=== PATIENT | female | born 1965 | race Caucasian/White ===

== ENCOUNTER → 2017-09-13 13:02 | Outpatient (CLI) | payer OTHER, SELFPAY ==
--- NOTE | 2017-09-13 13:25 | RAD_ITS ---
STUDY: SWALLOWING STUDY REASON FOR EXAM: Female, 52 years old. Dysphasia. History of laryngeal carcinoma and radiation treatment. TECHNIQUE: The examination was performed with Speech Pathology in attendance. Under fluoroscopic observation, the patient ingested thin barium, thick barium, barium pudding, and barium coated cracker. FLUOROSCOPY TIME: 2:45 minutes/seconds. 2513 fluoroscopic images were obtained. RADIOLOGIST INVOLVEMENT: Radiologist was present and providing direct supervision. COMPARISON: None. FINDINGS: The following was observed during swallowing of the various mixtures of barium: Thin Barium: Penetration without aspiration with ingestion of thin liquids. Thick Barium: There was no evidence of aspiration or laryngeal penetration. Barium Pudding: There was no evidence of aspiration or laryngeal penetration. Barium Coated Cracker: There was no evidence of aspiration or laryngeal penetration. RAD/Swallowing Function w/Video IMPRESSION: Penetration with ingestion of thin liquids. The swallow study findings were discussed with the patient by the speech pathologist at the conclusion of the examination. Please see speech pathology report for more information and recommendations. Electronically Signed: West De Jesus MD at 14:26 EDT Tel [phone], Service support ,
--- NOTE | 2017-09-13 13:30 | SP.MBSS_ITS ---
PRIMARY / SECONDARY DIAGNOSIS: dysphagia (R13.10) REFERRING PHYSICIAN: Dr. Zackary Troncoso MD CURRENT DIET: regular textures, thin liquids DENTITION: WFL MENTAL STATUS: WNL RESPIRATORY STATUS: O2 via room air PREVIOUS MODIFIED BARIUM SWALLOW STUDY: none REASON FOR REFERRAL: Patient is a 52 year old female referred for a modified barium swallow (MBS) study to objectively assess the Patients oropharyngeal swallow function under fluoroscopy secondary to reported difficulties with deglutition stemming from prior excision of malignant vocal fold polyps, with reported occasional odynophagia / burning sensation, globus sensation, and occasional coughing during intake. Dysphagia has somewhat improved over the last few months, with the Patient reporting symptoms ameliorated with chin tuck posture execution. Patient reports recent right lower lobe pneumonia in addition to frequent bouts of bronchitis following initiation of radiation intervention, in addition to multiple bouts of pneumonia and bronchitis leading up to identification. Patient reports upwards of 40bs weight loss over the last 6 months. Aphonic at time of assessment (reports losing voice last evening with prolonged coughing events). 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 STUDY FINDINGS: Patient participated in a Modified Barium Swallow (MBS) study on 09/13/2017. Dr. De Jesus was the radiologist present for this evaluation. This study was recorded in the lateral view and images were sent to PACs for storage. The following consistencies were presented to this patient for analysis of oropharyngeal swallow function: thin liquids, nectar thickened liquids, pudding , and a regular textured, [place] cookie. Results of the MBS are as follows: PENETRATION / ASPIRATION SCALE (SEGURA): 1 = does not enter airway 2 = enters airway/above vocal folds/ejected 3 = enters airway/above vocal folds/not ejected 4 = enters airway/contacts vocal folds/ejected 5 = enters airway/contacts vocal folds/not ejected 6 = enters airway/below vocal folds/ejected 7 = enters airway/below vocal folds/not ejected despite effort 8 = enters airway/below vocal folds/no effort PENETRATION / ASPIRATION SCALE (SCORE): Thin liquid - 5 mL tsp.: 1 Thin liquids via cup (single sip): 3 Thin liquids via cup (single sip): 3 Thin liquids via cup (single sip): 3 Thin liquids via cup (chin tuck with effort): 3 Thin liquids via cup (chin tuck): 1 Thin liquids via cup (chin tuck): 3 Thin liquids via cup (chin tuck): 3 [place] thickened liquids via cup (single sip): 1 [place] thickened liquids via cup (single sip): 1 [place] thickened liquids via cup (single sip): 1 Pudding via spoon: 1 Regular textured cookie: 1 Thin liquids via cup (chin tuck): 3 IMPRESSION: DIAGNOSIS: mild to moderate pharyngeal dysphagia (R13.13) ORAL PHASE CHARACTERIZED BY: LABIAL SEAL: no labial escape TONGUE CONTROL DURING BOLUS MANIPULATION: posterior escape of less than half of bolus (one occasion) BOLUS PREPARATION / MASTICATION: slow prolonged chewing/mashing with complete recollection BOLUS TRANSPORT / LINGUAL MOTION: brisk tongue motion ORAL RESIDUE: trace residue lining oral structures PHARYNGEAL PHASE CHARACTERIZED BY: INITIATION OF PHARYNGEAL SWALLOW: bolus head in valleculae at first hyoid excursion SOFT PALATE ELEVATION: no bolus between soft palate and pharyngeal wall LARYNGEAL ELEVATION: partial superior movement of thyroid cartilage/partial approximation of arytenoids cartilage to epiglottic petiole ANTERIOR HYOID EXCURSION: intermittent partial anterior movement EPIGLOTTIC MOVEMENT: partial epiglottic inversion LARYNGEAL VESTIBULE CLOSURE AT HEIGHT OF SWALLOW: incomplete laryngeal vestibule closure with narrow column of air/contrast in laryngeal vestibule PHARYNGEAL STRIPPING WAVE: pharyngeal stripping wave present / complete PHARYNGOESOPHAGEAL SEGMENT OPENING: complete distension and complete duration with no obstruction of flow TONGUE BASE RETRACTION: trace column of contrast between tongue base and posterior pharyngeal wall PHARYNGEAL RESIDUE: intermittent collection of residue within or on pharyngeal structures (valleculae with more vicious textures); trace residue within or on pharyngeal structures across remaining trials ESOPHAGEAL PHASE CHARACTERIZED BY: ESOPHAGEAL BOLUS CLEARANCE IN THE UPRIGHT POSITION: complete clearance; esophageal coating EFFECTS OF TREATMENT STRATEGIES ATTEMPTED: Chin tuck posture = moderately effective Reduced bolus size = moderately effective Effort swallow = ineffective DIET TEXTURE RECOMMENDATIONS: Will recommend a regular-soft textured, nectar thickened liquid diet. COMPENSATORY STRATEGIES RECOMMENDED: Reduced bolus volume, reduced rate of intake, avoid straws, seated upright at 90 degrees during PO intake, remain upright for 30-60 minutes post meal (GERD precaution). Oral phase marked by very mild prolonged mastication and infrequent slight delay in oral phase propulsion, though is very likely due to distaste for contents ingested vs. oral phase abnormalities unless verified during clinical evaluations / treatment sessions. Pharyngeal phase marked by reduced closure of the airway during deglutition attributed to mild to at times moderate reduction in hyolaryngeal excursion resulting in inconsistent epiglottic inversion, poor laryngeal vestibule closure / pressure, and insufficient laryngeal vestibule pressure generated to expel penetrated material contributing to prandial penetration without ejection of thin liquids; mild discoordination of pharyngeal swallow onset timing resulting in suboptimal bolus location upon swallow onset; adequate pharyngeal motility. All deficits ameliorated with bolus volume adjustments and adjustments in liquid viscosity. Sufficient cough response noted to expel penetrated material. Patient and Patients daughter reporting coughing occurring towards mid to latter portions of meals, would suspect continued consolidation of trace amounts of liquids eventually leading to aspiration of previously penetrated materials, with higher likelihood when considering the lack of adduction reported by the Patients during previous endoscopic assessments, with multiple reported bouts of pneumonia. No aspiration appreciated throughout trials, unable to definitively rule out silent aspiration, though not suspected based on report would anticipate an overt reaction. RECOMMENDATIONS: Recommend a repeat modified barium swallow study following 6-8 weeks of skilled speech-language intervention targeting dysphagia (if clinically appropriate) to further assess diet texture tolerance and appropriateness for PO diet texture advancement to baseline diet textures; would further consider annual (1-2 years) repeat objective assessment to assess for any changes in oropharyngeal structure / function given the high prevalence of post radiation structuring that may accompany radiation intervention to the pharyngeal structures. Patient at higher risk for dehydration, increased risk of early satiety during PO intake (reduced caloric intake), and higher risk of non- compliance associated with nectar thickened liquid recommendations; recommend continued monitoring. This Patient would be an excellent candidate for the [place] Free Water Protocol (FFWP) to facilitate improved liquid intake between meals due to the Patients strong family support, intact cognitive presentation, unaffected ambulatory abilities, and maintained integrity of the oral structures following Patient and family training. Patient requires intensive skilled speech-language intervention targeting continued diet texture management ; training and implementation of recommended compensatory strategies; training and implementation of recommended oropharyngeal strengthening exercises to facilitate improved laryngeal vestibule closure / pressure; training, implementation, and Patient education regarding implementation of the FFWP; Patient and caregiver education regarding oropharyngeal dysphagia status post radiation intervention; and Patient / caregiver training targeting thickened liquid preparation. ADDITIONAL COMMENTS/RECOMMENDATIONS: Results and recommendations were discussed with the Patient immediately following MBS completion, with the Patient verbalizing understanding and agreement with all recommendations and education provided. IMAGE COUNT: 2513 G-CODES: SWALLOWING [id number] Current Status: CJ SWALLOWING G8997 Goal Status: SWALLOWING G8998 Discharge Status:
== END ==
PROVIDERS: Family Provider Nurse Practitioner Primary Care; PCP Nurse Practitioner Primary Care; Visit Provider Otolaryngology
DX: R13.10 Dysphagia, unspecified (principal); R49.1 Aphonia
CPT/HCPCS: 74230; 92610